=== PATIENT | male | born 1995 | race Caucasian/White ===

== ENCOUNTER 2018-02-14 19:44 | Inpatient (IN) | payer OTHER ==
--- NOTE | 2018-02-14 20:21 | ED ---
Psychiatric Complaint - HPI Summary HPI Summary: This pt is a 22 y/o male presenting to [facility] via EMS and [place] [employer] for suicide attempt today. Pt reports he jumped off a bridge [place] the gorg[place]. He states he fell into the net which prevented him from falling into the gorge. He additionally notes depression and left hand pain s/p fall. Pt denies any other injuries from fall today. No head strike or LOC. Pt notes he was pulled off the net by EMS. He reports recent stressor of school that prompted suicide attempt today. No hx of depression. Denies any PMHx. Pt denies any past suicide attempts. He only takes vitamins on a daily basis. - History Of Current Complaint Chief Complaint: EDMentalHealth Time Seen by Provider: 02/14/18 20:14 Hx Obtained From: Patient Onset/Duration: Lasting Days, Still Present Timing: Days Severity Currently: Severe Character: Depressed Aggravating Factor(s): Recent Stress Alleviating Factor(s): Nothing Associated Signs And Symptoms: Positive: Negative Has Suicidal: Reports: Thoughts, With A Plan, Demonstrates Gesture Has Homicidal: Denies: Thoughts, With A Plan Recent Stressor(s): school - Allergies/Home Medications Allergies/Adverse Reactions: Allergies Allergy/AdvReac Type Severity Reaction Status Date / Time No Known Allergies Allergy Verified 02/14/18 20:04 Home Medications: Home Medications Calcium Carbonate/Vitamin D3 [Calcium 1000 + D] 1 tab PO DAILY 02/14/18 [ History Confirmed 02/14/18] Multivitamin [Multivitamins] 1 cap PO DAILY 02/14/18 [History Confirmed 02/14/18 ] PMH/Surg Hx/FS Hx/Imm Hx Endocrine/Hematology History: Denies: Hx Diabetes Cardiovascular History: Denies: Hx Hypertension Respiratory History: Denies: Hx Asthma - Surgical History Surgery Procedure, Year, and Place: wisdom teeth removal Infectious Disease History: No Infectious Disease History: Denies: Traveled Outside the [place] in Last 30 Days - Family History Known Family History: Negative: Cardiac Disease, Hypertension, Diabetes Family History: Mother's side of CA. - Social History Alcohol Use: None Substance Use Type: Reports: None Smoking Status (MU): Never Smoked Tobacco Review of Systems Negative: Fever, Chills Cardiovascular: Negative Respiratory: Negative Gastrointestinal: Negative Musculoskeletal: Other - left hand pain Psychological: Other - SI thoughts, plan, and attempt Positive: Depressed. Negative: Other - HI thoughts/plan All Other Systems Reviewed And Are Negative: Yes Physical Exam - Summary Physical Exam Summary: VITAL SIGNS: Reviewed. GENERAL: Patient is a well-developed and nourished male. Patient is not in any acute respiratory distress. HEAD AND FACE: No signs of trauma. No ecchymosis, hematomas or skull depressions. No sinus tenderness. EYES: PERRLA, EOMI x 2, No injected conjunctiva, no nystagmus. EARS: Hearing grossly intact. Ear canals and tympanic membranes are within normal limits. MOUTH: Oropharynx within normal limits. NECK: Supple, trachea is midline, no adenopathy, no JVD, no carotid bruit, no c- spine tenderness, neck with full ROM. CHEST: Symmetric, no tenderness at palpation LUNGS: Clear to auscultation bilaterally. No wheezing or crackles. CVS: Regular rate and rhythm, S1 and S2 present, no murmurs or gallops appreciated. ABDOMEN: Soft, non-tender. No signs of distention. No rebound, no guarding, and no masses palpated. Bowel sounds are normal. EXTREMITIES: FROM in all major joints, no edema, no cyanosis or clubbing. NEURO: Alert and oriented x 3. No acute neurological deficits. Speech is normal and follows commands. SKIN: Dry and warm PSYCH: pt appears to be sad Triage Information Reviewed: Yes Vital Signs On Initial Exam: Initial Vitals Temp Pulse Resp BP Pulse Ox 98.8 F 90 20 122/69 98 02/14/18 19:58 02/14/18 19:58 02/14/18 19:58 02/14/18 19:58 02/14/18 19:58 Vital Signs Reviewed: Yes Diagnostics - Vital Signs Vital Signs Temp Pulse Resp BP Pulse Ox 02/14/18 19:58 98.8 F 90 20 122/69 98 - Laboratory Result Diagrams: 02/14/18 21:43 02/14/18 21:43 Lab Statement: Any lab studies that have been ordered have been reviewed, and results considered in the medical decision making process. Re-Evaluation - Re-Evaluation First Eval Re-Evaluation Time: 21:26 Comment: Pt is medically cleared. Course/Dx - Course Assessment/Plan: Blood work w/o a significant abnormality. Pt is medically cleared. He is awaiting for a MHE. Patient is hemodynamically stable and A+O x 3. Patient will be signed out to Dr. Gonzalez at shift change. Patient is still awaiting for the mental health evaluation. - Differential Dx/Clinical Impression Differential Diagnosis/HQI/PQRI: Positive: Depression, Suicide Attempt, Suicidal Ideation Provider Diagnosis: Major depressive disorder Discharge - Sign-Out/Discharge Documenting (check all that apply): Sign-Out Patient Signing out patient TO: Parviz Gonzalez - pending dispo, awaiting MHE - Discharge Plan Condition: Fair Disposition: PSYCHIATRIC FACILITY[place] [place] Billing Disposition and Condition Condition: STABLE - Attestation Statements Document Initiated by Scribe: Yes Documenting Scribe: Judit Broussard Provider For Whom Scribe is Documenting (Include Credential): Robb Poe MD Scribe Attestation: Judit De Santiago, scribed for Robb Poe MD on 02/16/18 at 0912. Scribe Documentation Reviewed: Yes Provider Attestation: The documentation as recorded by the Judit dacosta accurately reflects the service I personally performed and the decisions made by , Robb Poe MD
[2018-02-14 21:50] LABS: ABS Basophils 0 10^3/ul (0-0.2); ABS Eosinophils 0 10^3/ul (0-0.6); ABS Lymphocytes 1.8 10^3/ul (1.0-4.8); ABS Monocytes 0.6 10^3/ul (0-0.8); ABS Nucleated RBC 0 10^3/ul; Eosinophil % 0.6 % (0-6); Hematocrit 46 % (42-52); Hemoglobin 16.2 g/dl (14.0-18.0); Lymphocyte % 23.7 % (25-47); Mean Corpuscular HGB Conc 35 g/dl (31-36); Mean Corpuscular Hemoglobin 33 pg (27-31); Mean Corpuscular Volume 92 fL (80-94); Mean Platelet Volume 7.6 um3 (7.4-10.4); Nucleated Red Blood Cells % 0.2; Platelet Count 255 10^3/ul (150-450); Red Blood Count 4.99 10^6/ul (4.00-5.40); Red Cell Distribution Width 13 % (10.5-15); White Blood Count 7.4 10^3/ul (3.5-10.8)
[2018-02-14 22:06] LABS: EGFR Non-African American 97.9 (>60)
[2018-02-15 00:17] LABS: Urine Appearance Clear; Urine Blood Negative (Negative); Urine Color Yellow; Urine Ketones Trace (Negative); Urine Protein Negative (Negative); Urine Urobilinogen Negative (Negative)
--- NOTE | 2018-02-15 04:04 | ED ---
Progress - Progress Note Progress Note: This patient was signed out from Lui Brito on shift changed awaiting MHE. After MHE by Dr. Nj the patient will be admitted with dx of major depressive disorder. - Consult/PCP Time Called: 21:30 Re-Evaluation - Re-Evaluation First Eval Re-Evaluation Time: 21:26 Comment: Pt is medically cleared. Course/Dx - Course Course Of Treatment: This patient was signed out from Lui Brito on shift changed awaiting MHE. After MHE by Dr. Nj the patient will be admitted with dx of major depressive disorder. They are attempting to admit the patient although there are no beds currently. If none are open the patient will be transfered, Dr Cr will be informed of this - Diagnoses Provider Diagnoses: Major depressive disorder Discharge - Sign-Out/Discharge Documenting (check all that apply): Patient Departure - admitted Receiving patient FROM: Robb Poe - Discharge Plan Condition: Fair Disposition: PSYCHIATRIC FACILITY[place] [place] - Attestation Statements Document Initiated by Scribe: Yes Documenting Scribe: Bao Wilhelm Provider For Whom Scribe is Documenting (Include Credential): Parviz Gonzalez MD Scribe Attestation: Bao De Santiago, scribed for Parviz Gonzalez MD on 02/16/18 at 0955.
--- NOTE | 2018-02-15 08:38 | PN ---
ED Flex Patient Progress Note Subjective: This is a 22 year-old M who is pending admission to [facility] / transfer to another psychiatric facility / discharge to home / or being observed secondary to SI with attempt. Pt. examined in ER bed 12 around 0810. He is sleeping comfortably. Objective: Vitals: Most recent vital signs documented below. General NAD, Alert and oriented x3. Laboratory: Current laboratory results documented below. Assessment: Pending MHE. Plan: Pending psychiatric or medical consultation to observe / transfer / admit / discharge will follow up daily . Vital Signs Temp Pulse Resp BP Pulse Ox 98.8 F 50 16 109/65 96 02/14/18 19:58 02/15/18 07:10 02/15/18 07:10 02/15/18 07:10 02/15/18 07:10 Lab Results - Entire Visit 02/14/18 02/14/18 02/14/18 23:59 23:59 21:43 WBC RBC Hgb Hct MCV MCH MCHC RDW Plt Count MPV Neut % (Auto) Lymph % (Auto) Mcleod % (Auto) Eos % (Auto) Baso % (Auto) Absolute Neuts (auto) Absolute Lymphs (auto) Absolute Monos (auto) Absolute Eos (auto) Absolute Basos (auto) Absolute Nucleated RBC Nucleated RBC % Sodium 137 Potassium 3.4 L Chloride 103 Carbon Dioxide 27 Anion Gap 7 BUN 14 Creatinine 0.96 Est GFR ( Amer) 118.5 Est GFR (Non-Af Amer) 97.9 BUN/Creatinine Ratio 14.6 Glucose 94 Calcium 9.7 Total Bilirubin 1.00 AST 18 ALT 11 Alkaline Phosphatase 63 Total Protein 6.8 Albumin 4.7 Globulin 2.1 Albumin/Globulin Ratio 2.2 TSH 0.81 Urine Color Yellow Urine Appearance Clear Urine pH 7.0 Ur Specific [place] 1.010 Urine Protein Negative Urine Ketones Trace A Urine Blood Negative Urine Nitrate Negative Urine Bilirubin Negative Urine Urobilinogen Negative Ur Leukocyte Esterase Negative Urine Glucose Negative Salicylates < 2.50 Urine Opiates Screen None detected Acetaminophen < 15 Ur Barbiturates Screen None detected Ur Phencyclidine Scrn None detected Ur Amphetamines Screen None detected U Benzodiazepines Scrn None detected Urine Cocaine Screen None detected U Cannabinoids Screen None detected Serum Alcohol < 10 02/14/18 21:43 WBC 7.4 RBC 4.99 Hgb 16.2 Hct 46 MCV 92 MCH 33 H MCHC 35 RDW 13 Plt Count 255 MPV 7.6 Neut % (Auto) 67.6 Lymph % (Auto) 23.7 L Mcleod % (Auto) 7.8 H Eos % (Auto) 0.6 Baso % (Auto) 0.3 Absolute Neuts (auto) 5.0 Absolute Lymphs (auto) 1.8 Absolute Monos (auto) 0.6 Absolute Eos (auto) 0 Absolute Basos (auto) 0 Absolute Nucleated RBC 0 Nucleated RBC % 0.2 Sodium Potassium Chloride Carbon Dioxide Anion Gap BUN Creatinine Est GFR ( Amer) Est GFR (Non-Af Amer) BUN/Creatinine Ratio Glucose Calcium Total Bilirubin AST ALT Alkaline Phosphatase Total Protein Albumin Globulin Albumin/Globulin Ratio TSH Urine Color Urine Appearance Urine pH Ur Specific [place] Urine Protein Urine Ketones Urine Blood Urine Nitrate Urine Bilirubin Urine Urobilinogen Ur Leukocyte Esterase Urine Glucose Salicylates Urine Opiates Screen Acetaminophen Ur Barbiturates Screen Ur Phencyclidine Scrn Ur Amphetamines Screen U Benzodiazepines Scrn Urine Cocaine Screen U Cannabinoids Screen Serum Alcohol
[2018-02-15] MEDS ORDERED: Acetaminophen TAB* 325 MG PO PRN (10:21)
[2018-02-15] MEDS ORDERED: Al Hydrox/Mg Hydrox/Simet LIQ* 30 ML UDC PO PRN (10:21)
[2018-02-16] MEDS: Vitamin THERAPEUTIC TAB PO SCH (11:32)
[2018-02-16] MEDS: Calcium/Vitamin D TAB 250/125* TAB PO SCH (11:32)
--- NOTE | 2018-02-16 16:48 | PN ---
MHU: Group Therapy Note - Service Type Service Type: [id number] Group Psychotherapy - Medication Education Group: Patient attended group and presented with flat affect that did not vary with discussion. Although responsive to direct prompts to respond to questions, patient did not engage in spontaneous conversation.
--- NOTE | 2018-02-16 21:20 | HP ---
HISTORY AND PHYSICAL: DATE OF ADMISSION: 02/15/18 PROVIDER: Mitzi Salguero NP, in Psychiatry. SUPERVISING PHYSICIAN: Zain Watts MD.* (DICTATED BY MITZI SALGUERO NP) JUSTIFICATION FOR ADMISSION: The patient is in need of 24-hour supervision and care secondary to a suicide attempt wherein he jumped into the net over one of the gorges at [employer] and was planning on climbing out the net and into the gorge to end his life. CHIEF COMPLAINT: "I was working nonstop, I didn't sleep, I was full of rage and fear, and I jumped off the bridge." HISTORY OF PRESENT ILLNESS: The patient is a 22-year-old single white male with no history of psychiatric illness, although he does have an auditory processing disorder, who arrives brought in by ambulance on a 9.39 status after walking across the bridge, climbing over it, jumping into a net with the plan to jump out of the net. Fortunately, he was terrified of the fall and once he got into the net, he decided to stay there. He states that he was working 7 days a week 10 to 12 hours a day. He also could not sleep. He was also angry. He was filled with fear, he then became numb. He had dinner and then he went to jump off the bridge. He planned on climbing out of the net, but he found the fall so terrifying that he decided to stay still. He says that he has been overwhelmed by the semester. He is mostly feeling stressed and not depressed. He has been having trouble thinking, trouble falling asleep, and he has detectable anxiety. He states his anxiety is only a 2/10; however, when pressed about that, he acknowledged it might actually be higher. He is in an [employer] program at [employer] in the [employer] and [employer]. He is taking four 400-level courses, which apparently is too much for him. His parents have come up to see him. His dad seems somewhat relaxed about issues. His mom seems quite upset. His sleep is poor. He is not interested in much. His energy is low. He is unable to concentrate. His appetite has been poor and clearly he has had a suicide attempt. PAST PSYCHIATRIC HISTORY: He has had a therapist when he was quite young related to an auditory processing disorder. He had a psychologist in middle school, but he does not remember why. He had another one 2 to 3 years ago in [facility] when he, according to his father, failed out of [employer] and went to [employer] for a semester. He has not had a therapist since then. He has not had any prior suicide attempts. This time he states he did want to . As far as previous meds go, 1-1/2 years ago, he was prescribed sertraline to stay awake, which is an unfamiliar application, but he states he is quite sure that that is the medication he was given. He stopped taking it because it stopped working. He denies trauma. He denies traumatic brain injury. He denies access to weapons. He denies homicidality. He is not taking any psychiatric meds currently. SUBSTANCE ABUSE HISTORY: He denies all substance abuse and all substance abuse treatment. PAST MEDICAL HISTORY: Negative. CURRENT MEDICATIONS: He takes vitamins. He has taken no other medications in the past. FAMILY HISTORY OF PSYCHIATRIC ILLNESS: None. He says his dad's side of the family drinks a lot, but no one has been in treatment. SOCIAL HISTORY: He was born in [facility] and grew up there with his sister , Natalie. His parents, Suzanne and Jeromy, are now . He denies abuse. His education was apparently typical. He is now in [employer]. This is his 4th year. He does not date anyone. He would be interested in woman. He has never dated anyone at all. He is not employed. He has never been in the . There are no legal problems. He has never had a sexual partner. REVIEW OF SYMPTOMS: The patient reports feeling alert. He denies shortness of breath, heat or cold intolerance, chest pain, or abdominal pain. He denies neurological symptoms. He denies fevers or changes in weight. PHYSICAL EXAMINATION VITAL SIGNS: On 02/15/18 at 1449, his temperature is 98.3, his pulse is 77, respirations 16, O2 sat 100%, blood pressure 126/68. For further exam data, please see emergency department records. The only notable item is that his left hand has been scraped from falling into the net. This is not a significant injury. LABORATORY DATA: Most data are within normal limits with the exceptions MCH is 33, which is high, lymph percentage is low at 23.7, monocyte percentage is high at 7.8. Potassium is low at 3.4. Urine contains trace ketones and his toxicology screen is clear. MENTAL STATUS EXAM: Lon is tall and slim. He has brown hair and a small naqvi. He is cooperative. His grooming is adequate. His motor activity is normal, but slightly stiff. He is not irritable or hostile. His speech is normal rate, tone, and volume. He appears to be euthymic. His affect is constricted. His thought processes are rapid. His thought content is logical. He is no longer homicidal or suicidal. He is not having any hallucinations. His insight is good. His judgement is fair. He is alert and oriented x3. DIAGNOSIS: Belcher I: Adjustment disorder with depression and anxiety. IMPRESSION: This is an intelligent man, who is 22, who attends [employer] in his 4th year, and found himself overwhelmed by work and potentially lack of social support. He completed his day, had dinner and then jumped off a bridge into a net. He found the fall so terrifying that he decided not to go through with the rest of the suicide attempt. PLAN: The patient is admitted to the adult behavioral health unit and placed on q.15-minute checks for his own safety. He is encouraged to participate in supportive milieu, individual and group therapy. His estimated length of stay is 5 to 7 days. We will discuss medications and titrate them to efficacy if necessary. We will monitor for mood and thought content. Discharge planning will include family involvement and outpatient providers. MITZI SALGUERO, ESSIE [id number]/[facility] #: [id number] RORY
[2018-02-17] MEDS: Calcium/Vitamin D TAB 250/125* TAB PO SCH (09:40)
[2018-02-17] MEDS: Vitamin THERAPEUTIC TAB PO SCH (09:40)
--- NOTE | 2018-02-17 14:48 | PN ---
Subjective - Subjective Date of Service: 02/17/18 Service Type: 40362 Hosp care 35 min high complexity Subjective: Visiting with Lon and his Dad, Jeromy, provided information about his auditory processing disorder as well as his struggles through school and eventual victory over 3 years with great grades. Jeromy believes, and Lon agrees, that Lon did not take advantage of advice available to him at [place]. Lon agrees that he thinks rapidly and not with a lot of space to entertain alternative ideas of what to do. Thus, he took courses that were not necessarily appropriate to him and he chose to jump off a bridge rather than call someone. Objective - Appearance Appearance: Thin Framed Dysmorphic Features: No Hygiene: Normal Grooming: Well Kept - Behavior Psychomotor Activities: Normal Exhibits Abnormal Movement: No - Attitude and Relatedness Attitude and Relatedness: Superficially Cooperative Eye Contact: Fair - Speech Quality: Unpressured Latencies: Normal Quantity: Appropriate - Mood Patient's Decription of Mood: "Okay" - Affect Observed Affect: Constricted Affect Consistent with: Dysphoria - Thought Process Patient's Thought Process: Coherent, Goal Directed Thought Content: No Passive Wish, No Suicidal Planning, No Homicidal Ideation, No Paranoid Ideation - Sensorium Experiencing Hallucinations: No, Sensorium is Clear Type of Hallucinations: Visual: No, Auditory: No, Command: No - Level of Consciousness Level of Consciousness: Alert Orientation: Yes Intact, Yes Orientated to Time, Yes Orientated to Place, Yes Orientated to Person - Impulse Control Impulse Control: Tenuous - Insight and Judgement Insight and Judgement: Fair - Group Participation Particating in Group Activities: Yes - Additional Observations Comments: Lon does not currently want to take medication. We will revisit this. He is adherent to other recommendations, such as going to groups and eating meals. Assessment - Assessment Merits Inpatient Hospitalization: For Immediate Safety Inpatient DSM-V Dx: F43.23 Clinical Impression: Lon seems resigned to be here and states he understands why he can't go home. The primary focus of his treatment at this point is introducing spaces/time into his thinking so he can make more reasoned choices, as he no longer wishes to . He is very compliant with the advice of his dad, but he also does not respond with questions or objections. Plan - Plan Treatment Plan: Name: DAWOOD NOAH Birthdate: 1995 [id number] Continued Medication Management: Start Medication Medications: Current Medications Acetaminophen (Tylenol Tab*) 650 mg PO Q4H PRN PRN Reason: for pain; or Temp >101 F Al Hydrox/Mg Hydrox/Simethicone (Maalox Plus*) 30 ml PO Q4H PRN PRN Reason: INDIGESTION Calcium/Vitamin D (Oscal D Tab 250/125*) 1 tab PO DAILY [facility] Last Admin: 02/17/18 09:40 Dose: 1 tab Multivitamins (Theragran Tab*) 1 tab PO DAILY [facility] Last Admin: 02/17/18 09:40 Dose: 1 tab - Discharge Plan Discharge Plan: Outpatient Follow Up Additional Comments: Lon's father, Jeromy, has made many arrangements and plans for Lon when he returns to [facility] to live with his Dad for about a year after which he will return to [employer]. Jeromy's plan includes a therapist, exercise, a part- time job, and elimination of his computer (and therefore games) for several months. His mom, Suzanne, will be meeting with Lon Wednesday.
[2018-02-18] MEDS: Vitamin THERAPEUTIC TAB PO SCH (09:00)
[2018-02-18] MEDS: Calcium/Vitamin D TAB 250/125* TAB PO SCH ×2 (09:00→20:32)
[2018-02-18] MEDS: Sertraline* 50 MG TAB PO SCH (17:00)
--- NOTE | 2018-02-18 19:16 | PN ---
Subjective - Subjective Date of Service: 02/18/18 Service Type: 77413 Hosp care 35 min high complexity Subjective: Spoke with Klaudia, Lon's mom, at length. She revealed that while Jeromy, Lon's dad, raised Lon since age 14, Klaudia and her family have been functioning in the background. In addition, Klaudia believes her potential role in Lon's life has been overwhelmed by Jeromy's strong and "energetic/charismatic" personality and functional alcoholism. Needless to say, there has been some competetive parenting. From Klaudia's perspective, Jeromy has been overwhelming her role and misrepresenting her intentions. When I speak with Lon, it is clear that he is aware of these difficult machinations, if not the true results (which, of course, remain obscure). Lon seems to feel the pull between the parents, but at the same time is able to focus on his own needs and agree to a future 100 mg dose of sertraline in the context of reducing depression, anxiety, and impulsivity. Objective - Appearance Appearance: Healthy Appearing Dysmorphic Features: No Hygiene: Normal Grooming: Well Kept - Behavior Psychomotor Activities: Normal Exhibits Abnormal Movement: No - Attitude and Relatedness Attitude and Relatedness: Well Related Eye Contact: Good - Speech Quality: Unpressured Latencies: Normal Quantity: Appropriate - Mood Patient's Decription of Mood: "Fine" - Affect Observed Affect: Constricted Affect Consistent with: Euthymia - Thought Process Patient's Thought Process: Coherent, Goal Directed Thought Content: No Passive Wish, No Suicidal Planning, No Homicidal Ideation, No Paranoid Ideation - Sensorium Experiencing Hallucinations: No, Sensorium is Clear - Level of Consciousness Level of Consciousness: Alert Orientation: No Intact, No Orientated to Time, No Orientated to Place, No Orientated to Person - Impulse Control Impulse Control: Tenuous - Insight and Judgement Insight and Judgement: Good - Group Participation Particating in Group Activities: Yes - Medication Management Medication Management Adherence: Yes - Additional Observations Comments: Lon is adherent to recommendations, such as going to groups, taking medications , and eating meals.Although he is somewhat unsure that medication will be helpful to him, he is agreeable. Assessment - Assessment Merits Inpatient Hospitalization: For Immediate Safety Inpatient DSM-V Dx: F43.23 Clinical Impression: Lon seems resigned to be here and states he understands why he can't go home. The primary focus of his treatment at this point is introducing spaces/time into his thinking so he can make more reasoned choices, as he no longer wishes to . He is very compliant with the advice of his dad, but he also could benefit from the advice of both parents. In the meantime, he is benefitting significantly from groups and the information he is garnering there Plan - Plan Treatment Plan: Name: DAWOOD ZAMORA Birthdate: 1995 [id number] Continued Medication Management: Start Medication Medications: Current Medications Acetaminophen (Tylenol Tab*) 650 mg PO Q4H PRN PRN Reason: for pain; or Temp >101 F Al Hydrox/Mg Hydrox/Simethicone (Maalox Plus*) 30 ml PO Q4H PRN PRN Reason: INDIGESTION Calcium/Vitamin D (Oscal D Tab 250/125*) 1 tab PO BID RADHA Lactobacillus Rhamnosus (Lactobacillus Acidophilus*) 1 tab PO DAILY RADHA Multivitamins (Theragran Tab*) 1 tab PO DAILY [facility] Last Admin: 02/18/18 09:00 Dose: 1 tab Sertraline HCl (Zoloft*) 50 mg PO DAILY [facility]HA Stop: 02/21/18 01:00 Last Admin: 02/18/18 17:00 Dose: 50 mg Sertraline HCl (Zoloft*) 100 mg PO DAILY RADHA - Discharge Plan Discharge Plan: Outpatient Follow Up Additional Comments: Lon's father, Jeromy, has made many arrangements and plans for Lon when he returns to [facility] to live with his Dad for about a year after which he will return to [place]. Jeromy's plan includes a therapist, exercise, a part- time job, and elimination of his computer (and therefore games) for several months. His mom has concerns regarding his therapy and objectives consistent with his future. Here at [facility], we remain concerned about his immediate mental health concerns and will work toward a partial [facility] as well as concerns for Lon's safety which will be consistent with his personal goals.
[2018-02-19] MEDS: Calcium/Vitamin D TAB 250/125* TAB PO SCH ×2 (08:56→21:41)
[2018-02-19] MEDS: Lactobacillus Acidophilus* 1 TAB PO SCH (08:57)
[2018-02-19] MEDS: Vitamin THERAPEUTIC TAB PO SCH (08:57)
[2018-02-19] MEDS: Sertraline* 50 MG TAB PO SCH (08:57)
--- NOTE | 2018-02-19 12:51 | PN ---
Subjective - Subjective Date of Service: 02/19/18 Service Type: 90147 Hosp care 15 min low complexity Subjective: Efraín is seen in weekend coverage for Mitzi TANNER. He presents as dry, somewhat concrete and perhaps dismissive. He denies any further suicidal thinking and reports that he is "marginally satisfied" with life. He appears euthymic with no current complaints. He does note that the sertraline gave him mild diarrhea initially but this is resolving. His expectation is that he will remain hospitalized until this (02/24). Objective - Appearance Appearance: Well Developed/Nourished Dysmorphic Features: No Hygiene: Normal Grooming: Well Kept - Behavior Psychomotor Activities: Normal Exhibits Abnormal Movement: No - Attitude and Relatedness Attitude and Relatedness: Cooperative Eye Contact: Fair - Speech Quality: Unpressured Latencies: Normal Quantity: Terse - Mood Patient's Decription of Mood: "Okay" - Affect Observed Affect: Good Affect Consistent with: Euthymia - Thought Process Patient's Thought Process: Coherent Thought Content: No Passive Wish, No Suicidal Planning, No Homicidal Ideation, No Paranoid Ideation - Sensorium Experiencing Hallucinations: No, Sensorium is Clear Type of Hallucinations: Visual: No, Auditory: No, Command: No - Level of Consciousness Level of Consciousness: Alert Orientation: Yes Intact, Yes Orientated to Time, Yes Orientated to Place, Yes Orientated to Person - Impulse Control Impulse Control: Tenuous - Insight and Judgement Insight and Judgement: Fair - Group Participation Particating in Group Activities: Yes - Medication Management Medication Management Adherence: Yes Assessment - Assessment Merits Inpatient Hospitalization: For Immediate Safety, For Stabilization Inpatient DSM-V Dx: F43.23 Clinical Impression: Lon seems resigned to be here and states he understands why he can't go home. The primary focus of his treatment at this point is introducing spaces/time into his thinking so he can make more reasoned choices, as he no longer wishes to . He is very compliant with the advice of his dad, but he also could benefit from the advice of both parents. In the meantime, he is benefitting significantly from groups and the information he is garnering there Plan - Plan Treatment Plan: Name: EFRAÍN ZAMORA Birthdate: 1995 [id number] The patient has started a trial of sertraline 100mg PO qday. He appears to be improving but had a significant suicide attempt and is fortunate to be alive. Will continue inpatient care. Continued Medication Management: Start Medication Medications: Current Medications Acetaminophen (Tylenol Tab*) 650 mg PO Q4H PRN PRN Reason: for pain; or Temp >101 F Al Hydrox/Mg Hydrox/Simethicone (Maalox Plus*) 30 ml PO Q4H PRN PRN Reason: INDIGESTION Calcium/Vitamin D (Oscal D Tab 250/125*) 1 tab PO BID [facility] Last Admin: 02/19/18 08:56 Dose: 1 tab Lactobacillus Rhamnosus (Lactobacillus Acidophilus*) 1 tab PO DAILY [facility] Last Admin: 02/19/18 08:57 Dose: 1 tab Multivitamins (Theragran Tab*) 1 tab PO DAILY [facility] Last Admin: 02/19/18 08:57 Dose: 1 tab Sertraline HCl (Zoloft*) 50 mg PO DAILY [facility] Stop: 02/21/18 01:00 Last Admin: 02/19/18 08:57 Dose: 50 mg Sertraline HCl (Zoloft*) 100 mg PO DAILY [facility] - Discharge Plan Discharge Plan: Inpatient Hospitalization
[2018-02-20] MEDS: Calcium/Vitamin D TAB 250/125* TAB PO SCH ×2 (09:34→20:10)
[2018-02-20] MEDS: Lactobacillus Acidophilus* 1 TAB PO SCH (09:35)
[2018-02-20] MEDS: Sertraline* 50 MG TAB PO SCH (09:35)
[2018-02-20] MEDS: Vitamin THERAPEUTIC TAB PO SCH (09:35)
[2018-02-21] MEDS: Vitamin THERAPEUTIC TAB PO SCH (10:01)
[2018-02-21] MEDS: Sertraline* 100 MG TAB PO SCH (10:01)
[2018-02-21] MEDS: Calcium/Vitamin D TAB 250/125* TAB PO SCH ×2 (10:01→20:26)
[2018-02-21] MEDS: Lactobacillus Acidophilus* 1 TAB PO SCH (10:01)
--- NOTE | 2018-02-21 14:00 | PN ---
MHU: Group Therapy Note - Service Type Service Type: 45000 Group Psychotherapy - Cognitive Behavioral Group Therapy ( CBT):Patient was attentive and participatory in CBT programming this morning, and remained in good behavioral control. Patient expressed positive insights regarding relevant treatment interventions and goals.
--- NOTE | 2018-02-21 14:18 | PN ---
Subjective - Subjective Date of Service: 02/21/18 Service Type: 70178 Hosp care 25 min moderate complexity Subjective: Lon is doing well, apparently, in the milieu. He is thriving under lower stress and the ability to be independent from his immediate stressors. It should be noted well that his mother indicated that Lon stated he would engage in suicide attempt again if he were ever under a similar amount of stress. This statement is incredibly troubling and is inconsistent with the way Lon presents here. Objective - Appearance Appearance: Healthy Appearing Dysmorphic Features: No Hygiene: Normal Grooming: Well Kept - Behavior Psychomotor Activities: Normal Exhibits Abnormal Movement: No - Attitude and Relatedness Attitude and Relatedness: Well Related Eye Contact: Good - Speech Quality: Unpressured Latencies: Normal Quantity: Appropriate - Mood Patient's Decription of Mood: "Good" - Affect Observed Affect: Constricted Affect Consistent with: Euthymia - Thought Process Patient's Thought Process: Coherent Thought Content: Yes Suicidal Planning, No Passive Wish, No Homicidal Ideation, No Paranoid Ideation - Sensorium Experiencing Hallucinations: No, Sensorium is Clear Type of Hallucinations: Visual: No, Auditory: No, Command: No - Level of Consciousness Level of Consciousness: Alert Orientation: Yes Intact, Yes Orientated to Time, Yes Orientated to Place, Yes Orientated to Person - Impulse Control Impulse Control: Impaired - Insight and Judgement Insight and Judgement: Fair - Group Participation Particating in Group Activities: Yes - Medication Management Medication Management Adherence: Yes - Additional Observations Comments: Lon is adherent to recommendations, such as going to groups, taking medications , and eating meals.Although he is somewhat unsure that medication will be helpful to him, he is agreeable. He is a bit bored, having run out of things to read. He retains good humor, however. Assessment - Assessment Merits Inpatient Hospitalization: For Immediate Safety, For Discharge Planning Inpatient DSM-V Dx: F43.23 Clinical Impression: Lon seems resigned to be here and states he understands why he can't go home. The primary focus of his treatment at this point is introducing spaces/time into his thinking so he can make more reasoned choices, as he no longer wishes to . He is very compliant with the advice of his dad, but he also could benefit from the advice of both parents. In the meantime, he is benefitting significantly from groups and the information he is garnering there. Complications are arising due to the apparent disagreements of the parents. Both want the best for Lon. Plan - Plan Treatment Plan: Name: DAWOOD ZAMORA Birthdate: 1995 [id number] Medications: Current Medications Acetaminophen (Tylenol Tab*) 650 mg PO Q4H PRN PRN Reason: for pain; or Temp >101 F Al Hydrox/Mg Hydrox/Simethicone (Maalox Plus*) 30 ml PO Q4H PRN PRN Reason: INDIGESTION Calcium/Vitamin D (Oscal D Tab 250/125*) 1 tab PO BID [facility] Last Admin: 02/21/18 10:01 Dose: 1 tab Lactobacillus Rhamnosus (Lactobacillus Acidophilus*) 1 tab PO DAILY [facility] Last Admin: 02/21/18 10:01 Dose: 1 tab Multivitamins (Theragran Tab*) 1 tab PO DAILY [facility] Last Admin: 02/21/18 10:01 Dose: 1 tab Sertraline HCl (Zoloft*) 100 mg PO DAILY [facility] Last Admin: 02/21/18 10:01 Dose: 100 mg - Discharge Plan Discharge Plan: Outpatient Follow Up Additional Comments: Lon's father, Jeromy, has made many arrangements and plans for Lon when he returns to [facility] to live with his Dad for about a year after which he will return to [place]. Jeromy's plan includes a therapist, exercise, a part- time job, and elimination of his computer (and therefore games) for several months. His mom has concerns regarding his therapy and objectives consistent with his future. Here at [facility], we remain concerned about his immediate mental health concerns and will work toward a partial hospitalization program in [facility] as well as concerns for Lon's safety which will be consistent with his personal goals. A family phone call including Lon, mom, and dad, as well as Sara Allison , will be made at 2:30 Wednesday to discuss discharge plans.
[2018-02-22] MEDS: Calcium/Vitamin D TAB 250/125* TAB PO SCH ×2 (08:10→20:19)
[2018-02-22] MEDS: Sertraline* 100 MG TAB PO SCH (08:10)
[2018-02-22] MEDS: Vitamin THERAPEUTIC TAB PO SCH (08:10)
[2018-02-22] MEDS: Lactobacillus Acidophilus* 1 TAB PO SCH (08:10)
--- NOTE | 2018-02-22 14:17 | PN ---
MHU: Group Therapy Note - Service Type Service Type: [id number] Group Psychotherapy - Cognitive Behavioral Group Therapy ( CBT):Patient attended CBT programming this morning and presented with flat affect that did not vary with discussion. Although responsive to direct prompts to respond to questions, patient did not engage in spontaneous conversation.
--- NOTE | 2018-02-22 16:20 | PN ---
Subjective - Subjective Date of Service: 02/22/18 Service Type: 80119 Hosp care 25 min moderate complexity Subjective: Lon and I spoke for some time today regarding discharge plans and his possible ambivalence about ending his life. He was reassuringly calm and even-handed about his discharge plan stating that he would return to his dad's house as that 's where his room is. He also said that he would be reasonably happy to go home with his mom as his sister would be there and he wouldn't be there long. He was not as reassuring about his potential plan to end his life. He said that the only method of suicide he would use, due to his personal beliefs, would be jumping. He didn't like it as it was very frightening to him and said he wouldn' t do it again. In that way, he says he is free from the potential to suicide. On the other hand, he did not agree that there could be alternative methods of dealing with significant stress and anxiety and despair. He stated he did not think that combination of stress, anxiety, and despair could occur again. He was not open to talking about what would happen if it did. Objective - Appearance Appearance: Healthy Appearing Dysmorphic Features: No Hygiene: Normal Grooming: Well Kept - Behavior Psychomotor Activities: Normal Exhibits Abnormal Movement: No - Attitude and Relatedness Attitude and Relatedness: Cooperative Eye Contact: Good - Speech Quality: Unpressured Latencies: Normal Quantity: Appropriate - Mood Patient's Decription of Mood: "Good" - Affect Observed Affect: Good Affect Consistent with: Euthymia - Thought Process Patient's Thought Process: Coherent, Goal Directed Thought Content: Yes Suicidal Planning, No Passive Wish, No Homicidal Ideation, No Paranoid Ideation - Sensorium Experiencing Hallucinations: No, Sensorium is Clear Type of Hallucinations: Visual: No, Auditory: No, Command: No - Level of Consciousness Level of Consciousness: Alert Orientation: Yes Intact, Yes Orientated to Time, Yes Orientated to Place, Yes Orientated to Person - Impulse Control Impulse Control: Intact - Insight and Judgement Insight and Judgement: Impaired - Group Participation Particating in Group Activities: Yes - Medication Management Medication Management Adherence: Yes - Additional Observations Comments: Lon is adherent to recommendations, such as going to groups, taking medications , and eating meals.Although he is somewhat unsure that medication will be helpful to him, he is agreeable. He retains good humor. He is eager to shave and be presentable. His conversation does not become emotional. Rather, he is intellectualizes what he believes and feels and contextualizes it in thoughts rather than feelings. Assessment - Assessment Merits Inpatient Hospitalization: For Immediate Safety, For Discharge Planning Inpatient DSM-V Dx: F43.23 Clinical Impression: Lon seems resigned to be here and states he understands why he can't go home. He is very compliant with the advice of his dad. In the meantime, he is benefitting significantly from groups and the information he is garnering there. Lon is very intelligent and is so good at intellectualizing feelings, it is difficult to tell what he is feeling and how he might react to stress. He is safe here on the unit, but his resilience is difficult to predict. Plan - Plan Treatment Plan: Name: DAWOOD ZAMORA Birthdate: 1995 [id number] Medications: Current Medications Acetaminophen (Tylenol Tab*) 650 mg PO Q4H PRN PRN Reason: for pain; or Temp >101 F Al Hydrox/Mg Hydrox/Simethicone (Maalox Plus*) 30 ml PO Q4H PRN PRN Reason: INDIGESTION Calcium/Vitamin D (Oscal D Tab 250/125*) 1 tab PO BID [facility] Last Admin: 02/22/18 08:10 Dose: 1 tab Lactobacillus Rhamnosus (Lactobacillus Acidophilus*) 1 tab PO DAILY [facility] Last Admin: 02/22/18 08:10 Dose: 1 tab Multivitamins (Theragran Tab*) 1 tab PO DAILY [facility] Last Admin: 02/22/18 08:10 Dose: 1 tab Sertraline HCl (Zoloft*) 100 mg PO DAILY [facility] Last Admin: 02/22/18 08:10 Dose: 100 mg - Discharge Plan Discharge Plan: Outpatient Follow Up Additional Comments: Lon's father, Jeromy, has made many arrangements and plans for Lon when he returns to [facility] to live with his Dad for about a year after which he will return to [place]. Jeromy's plan includes a therapist, exercise, a part- time job, and elimination of his computer (and therefore games) for several months. His mom has concerns regarding his therapy and objectives consistent with his future. Here at [facility], we remain concerned about his immediate mental health concerns and will work toward a partial hospitalization program in [facility] as well as concerns for Lon's safety which will be consistent with his personal goals. A family phone call including Lon, mom, and dad, as well as Sara Allison , will be made at 2:30 today to discuss discharge plans. Discharge plans will be further solidified and Lon will make his needs known to his family.
[2018-02-23] MEDS: Calcium/Vitamin D TAB 250/125* TAB PO SCH ×2 (09:44→20:42)
[2018-02-23] MEDS: Vitamin THERAPEUTIC TAB PO SCH (09:44)
[2018-02-23] MEDS: Lactobacillus Acidophilus* 1 TAB PO SCH (09:45)
[2018-02-23] MEDS: Sertraline* 100 MG TAB PO SCH (09:45)
--- NOTE | 2018-02-23 16:21 | PN ---
MHU: Group Therapy Note - Service Type Service Type: [id number] Group Psychotherapy - Medication Education Group: Patient was attentive and participatory in group, and remained in good behavioral control. Patient expressed positive insights regarding relevant treatment interventions. Patient stated understanding of material discussed and had appropriate questions.
--- NOTE | 2018-02-23 16:36 | PN ---
Subjective - Subjective Date of Service: 02/23/18 Service Type: 74218 Hosp care 35 min high complexity Subjective: Lon is calm and yet more animated than he was on admission. We had a brief conversation organizing goals for the phone call that was planned for the afternoon. The phone call that occurred among the five of us, Lon, Sara Wellington, Jeromy, Suzanne, and Anyi, lasted about half an hour. We established that Lon could be discharged upon establishment of a discharge plan that contained all ingredients (partial hospitalization program, psychiatrist, therapist) required for successful discharge. The possibly contentious decision for Lon to make about where to live ended up being easily solved by Lon saying, "I'm going to live with my dad. That's where my room is." Objective - Appearance Appearance: Healthy Appearing Dysmorphic Features: No Hygiene: Normal Grooming: Well Kept - Behavior Psychomotor Activities: Normal Exhibits Abnormal Movement: No - Attitude and Relatedness Attitude and Relatedness: Cooperative Eye Contact: Good - Speech Quality: Unpressured Latencies: Normal Quantity: Appropriate - Mood Patient's Decription of Mood: "Good" - Affect Observed Affect: Constricted Affect Consistent with: Euthymia - Thought Process Patient's Thought Process: Coherent, Goal Directed Thought Content: No Passive Wish, No Suicidal Planning, No Homicidal Ideation, No Paranoid Ideation - Sensorium Experiencing Hallucinations: No, Sensorium is Clear Type of Hallucinations: Visual: No, Auditory: No, Command: No - Level of Consciousness Level of Consciousness: Alert Orientation: Yes Intact, Yes Orientated to Time, Yes Orientated to Place, Yes Orientated to Person - Impulse Control Impulse Control: Intact - Insight and Judgement Insight and Judgement: Good - Group Participation Particating in Group Activities: Yes - Medication Management Medication Management Adherence: Yes - Additional Observations Comments: Lon is adherent to recommendations, such as going to groups, taking medications , and eating meals.Although he is somewhat unsure that medication will be helpful to him, he is agreeable. He retains good humor. He is eager to shave and be presentable. His conversation does not become emotional. Rather, he is intellectualizes what he believes and feels and contextualizes it in thoughts rather than feelings. As he relaxes, he becomes more animated, although his affect is still quite constricted and he seems a little puzzled by emotional questions. He has a very pragmatic view of life which is serving him well right now. Assessment - Assessment Merits Inpatient Hospitalization: For Stabilization, Pending Safe DC Plan Inpatient DSM-V Dx: F43.23 Clinical Impression: Lon is benefitting significantly from groups and the information he is garnering there. Lon is very intelligent and is so good at intellectualizing feelings, it is difficult to tell what he is feeling and how he might react to stress. He is safe here on the unit, but his resilience is difficult to predict. Nevertheless, Lon is very reassuring in his explanations of why he would not go through with suicide, even if he had those thoughts. Plan - Plan Treatment Plan: Name: DAWOOD ZAMORA Birthdate: 1995 [id number] Medications: Current Medications Acetaminophen (Tylenol Tab*) 650 mg PO Q4H PRN PRN Reason: for pain; or Temp >101 F Al Hydrox/Mg Hydrox/Simethicone (Maalox Plus*) 30 ml PO Q4H PRN PRN Reason: INDIGESTION Calcium/Vitamin D (Oscal D Tab 250/125*) 1 tab PO BID [facility] Last Admin: 02/23/18 09:44 Dose: 1 tab Lactobacillus Rhamnosus (Lactobacillus Acidophilus*) 1 tab PO DAILY [facility] Last Admin: 02/23/18 09:45 Dose: 1 tab Multivitamins (Theragran Tab*) 1 tab PO DAILY [facility] Last Admin: 02/23/18 09:44 Dose: 1 tab Sertraline HCl (Zoloft*) 100 mg PO DAILY [facility] Last Admin: 02/23/18 09:45 Dose: 100 mg - Discharge Plan Discharge Plan: Outpatient Follow Up Additional Comments: Lon's father, Jeromy, has made many arrangements and plans for Lon when he returns to [facility] to live with his Dad for about a year after which he will return to [place]. Jeromy's plan includes a therapist, exercise, a part- time job, and elimination of his computer (and therefore games) for several months. His mom has concerns regarding his therapy and objectives consistent with his future. Here at [facility], we remain concerned about his immediate mental health concerns and will work toward a partial hospitalization program in [facility] as well as concerns for Lon's safety which will be consistent with his personal goals. Discharge plans are being further solidified. His family is on board with the plans as they are currently and we will continue to firm up plans for his discharge.
[2018-02-24] MEDS: Lactobacillus Acidophilus* 1 TAB PO SCH (08:50)
[2018-02-24] MEDS: Vitamin THERAPEUTIC TAB PO SCH (08:50)
[2018-02-24] MEDS: Sertraline* 100 MG TAB PO SCH (08:50)
[2018-02-24] MEDS: Calcium/Vitamin D TAB 250/125* TAB PO SCH ×2 (08:50→20:23)
[2018-02-25 07:52] VITALS: BP 108/62
[2018-02-25] MEDS: Vitamin THERAPEUTIC TAB PO SCH (08:38)
[2018-02-25] MEDS: Calcium/Vitamin D TAB 250/125* TAB PO SCH (08:38)
[2018-02-25] MEDS: Lactobacillus Acidophilus* 1 TAB PO SCH (08:38)
[2018-02-25] MEDS: Sertraline* 100 MG TAB PO SCH (08:38)
--- NOTE | 2018-02-25 11:05 | PN ---
MHU: Group Therapy Note - Service Type Service Type: 61349 Group Psychotherapy - Cognitive Behavioral Group Therapy ( CBT):Patient was attentive and participatory in CBT programming this morning, and remained in good behavioral control. Patient expressed positive insights regarding relevant treatment interventions and goals.
--- NOTE | 2018-02-25 22:30 | CONS ---
PSYCHOLOGICAL REPORT: DATE OF CONSULT: 02/25/18 REASON FOR REFERRAL: Efraín was referred for personality testing secondary to concerns regarding possible depression and lethality. TEST ADMINISTERED: Efraín completed the [place] Multiphasic Personality Inventory-2 (MMPI-2). Efraín was also seen by this leader writer in the context of cognitive behavioral group psychotherapy throughout his stay here. He was given feedback in individual conversation regarding testing results and his mother, Mason, was also seen in family counseling consultation. RELEVANT HISTORY: Efraín is a 22-year-old single, white male with no prior psychiatric admissions to the hospital, although he has been in outpatient treatment on 3 different occasions for long periods of time according to his mother. He is an Malagasy major at [employer], who was taken to the emergency department after having jumped off bridge and into one of the nets on campus. Efraín described having experienced intrusive suicidal thoughts in the preceding 2 to 3 weeks before jumping from the bridge, but describes having completed the attempt in a rather impulsive fashion. He describes increasing academic duress in recent days and described working a great deal on trying to keep up with coursework demands and became very fearful and angry. He describes taking what sounds to be somewhere between 18 and 21 credit hours and he did not anticipate the demands of the various courses in terms of time needed to put into his studies and his mother further elaborated that 2 of the courses required a performance aspect, which Efraín found difficult. Presently, Efraín anticipates medical leave and is going to return to studies next January. Meanwhile, he will return [place] to [place] [facility], where he anticipates living at his father's home where he has been since childhood and in having regular contact with his mother, who also lives in [place]. In fact, his mother is here visiting currently and is hopeful of taking him home this afternoon and having time with her son. His mother works as a psychologist in private practice currently in [facility] while his father works as a banking center manager in [place] [facility]. Other relevant history includes what sounds to be an acrimonious divorce between his parents, which Mason fears is part of his difficulties with depression. She describes having when Efraín was 14 years of age and then at 16 and is concerned that there are elements of parental alienation occurring, as well as exposure to rather chaotic experiences that have included his father's drinking and other social issues. TEST RESULTS: Efraín provides 3 elevated emotional duress scales all of rather minimal nature with F scores moving between T scores of 70 and 75 on the validity indices. This is indicative of someone who is endorsing significant amounts of both internal and external duress with discussion with Efraín endorsing difficulties with some pessimistic and cynical beliefs about people and circumstances. His emotional coping and self-esteem indices are thought to be in moderate ranges, which generally impress as a healthy range. Prominent concern both in clinical and in testing context is depression as Efraín elevates the depression scale to a T score of 75 with secondary elevations occurring on the interpersonal relatedness scales with minimal elevations between 67 and 70. Discussion with Efraín emphasized the importance of enhancing expectations of social interaction both in terms of satisfactory outcome and simply getting around people more often. This was related to depression and that often when people get depressed they tend to socially isolate and do not benefit from positive social interaction in terms of improving affect. IMPRESSIONS AND RECOMMENDATIONS: In discussion with Efraín' mother, Mason, outpatient treatment planning includes both individual and group efforts for Efraín with an emphasis on enhancing socialization through group activities. Feedback emphasized the importance of both peer relatedness as well as educational content in regards to ongoing psychotherapies as Efraín has described having less productive clinical experiences in prior psychotherapy efforts. Eduaryaima relayed his comments about prior clinical experience has been that he simply talks about his feelings, but does not get much feedback in regards to how to moderate negative mood. Other concerns regard potential for family conflict. Efraín has a very supportive sister, who is studying to enter medical school and who is more socially adept than he and quite interested in helping Efraín. It is hopeful Lon will respond positively to returning home to [facility] and continue to hale better perspectives on how to manage with life's difficulties. DIAGNOSTIC IMPRESSION: Supports adjustment disorder with depression and anxiety. [id number]/[facility] #: [id number] RORY
--- NOTE | 2018-02-28 10:52 | DS ---
DISCHARGE SUMMARY: DATE OF ADMISSION: 02/15/18 DATE OF DISCHARGE: 02/25/18 SUPERVISING PHYSICIAN: Zain Watts MD * (Mitzi Salguero NP) DIAGNOSES: [place] I: Major depressive disorder. [place] II: Deferred. CONDITION AT THE TIME OF DISCHARGE: Improved, psychiatrically cleared, stable. Efraín participated in groups and was social with peers. His mother was agreeable to discharge. He has done well here psychiatrically. He tolerated sertraline which has been taken before, but is new to him now. He will be attending a partial hospitalization program in [place] in [facility]. MENTAL STATUS EXAMINATION: At the time of discharge, the patient is calm, cooperative, and makes good eye contact. He is alert and oriented x3. His grooming is excellent. His speech pace is normal. His thought processes are logical. He is not psychotic or delusional. He denies AH, VH, SI and HI. His insight and judgment are good. He is willing to follow up. DISCHARGE INSTRUCTIONS TO THE PATIENT: A. Medications: 1. Calcium carbonate with vitamin D. 2. Multivitamin. 3. Sertraline 100 mg daily, dispensed 14 tablets. B. Diet: Regular. C. Activities: As tolerated. Lon is a nonsmoker. There are no studies pending at the time of discharge. D. Followup care: He has an appointment Wednesday at [place] partial hospitalization program in [facility]. E. Substance abuse followup is not indicated. Lon does not use any illegal substances or nicotine. HOSPITAL COURSE: A. Chief Complaint: "I was working nonstop, I didn't sleep, I was full of rage and fear and I jumped off the bridge." The patient is a 22-year-old single white male with no history of psychiatric illness, although he does have auditory processing disorder, who arrives brought in by ambulance on a 9.39 status after walking across the bridge, climbing over it, jumping into a net with a plan to jump out of the net. Fortunately, he was terrified of the fall and once he got into the net, he decided to stay there. 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 He also could not sleep. He was also angry. He was filled with fear. He then became numb. He had dinner and then he went to jump off the bridge. He planned on climbing out of the net, but he found the fall so terrifying that he decided to stay still. He states that he has been overwhelmed by the semester. He is mostly feeling stressed and not depressed. He has been having trouble thinking, trouble falling asleep and he has detectable anxiety. He states his anxiety is only 2/10; however, when pressed about that, he acknowledged it might actually be higher. He is in an [employer] program at [employer] in the [employer]. He is taking four 400 level courses, which apparently is too much for him. His parents have come up to see him. His dad seems somewhat relaxed about issues, his mom seems quite upset. His sleep is poor. He is not interested in much. His energy is low, he is unable to concentrate. His appetite has been poor and clearly has had a suicide attempt. B. Psychiatric Treatment Was Rendered: Lon was admitted to the adult behavioral unit and placed on 15-minute checks for safety. He did well on the unit, went to groups. He interacted with peers well. He tolerated med changes. Sertraline was started and we went from 50 to 100 mg. From home, he took vitamins and calcium. His stay here was relatively uneventful. He was pleasant. He went to almost all the groups. He got bored easily. There were people here who were difficult to manage and yet he managed well. He states that he is no longer having suicidal thoughts and that he anticipates never having suicidal thoughts again. When challenged on how he knows that, he says that he would never experience the exact kind of stress, emotional and work stress that he had and, therefore he knows he would never attempt suicide again. At this time though, his safety is assured by his parents' attentiveness and his constant observation and the addition of the partial hospitalization program. I did meet with his mom and dad. His mom is the one who took him home from discharge. She is extremely eager to see him do well and is incredibly attentive to him. No consults were entered. He is improved. He no longer feels overly stressed. He is no longer palpably anxious. In fact, his symptoms appeared to return to what looks more like depression rather than anxiety. He is very reserved and smiles in a somewhat flat fashion. He is extremely honest though about his emotions and does not tolerate inconsistencies in his reporting of emotions. He is very concrete. He is going to go back home with his mom for a few days and then return to stay with his dad because "that's where my bed is" and his followup will be intensive. MITZI SALGUERO, ESSIE [id number]/[facility] #: [id number] RORY
== END 2018-02-25 16:45 | disposition home or self-care (01) | DRG 882 ==
LOC: ED 19:44 → BSU 02-15 10:21 → ED 02-15 14:33 → BSU 02-17 02:31
PROVIDERS: ADMIT Psychiatry & Neurology Psychiatry; ATTEND Psychiatry & Neurology Psychiatry
PROC: GZHZZZZ Group Psychotherapy (ICD-10-PCS; principal; 2018-02-15)
DX: F43.23 Adjustment disorder with mixed anxiety and depressed mood (principal); F32.9 Major depressive disorder, single episode, unspecified; T14.91XA Suicide attempt, initial encounter; Y92.89 Other specified places as the place of occurrence of the external cause
CPT/HCPCS: 36415; 80053; 80307; 80320; 80329; 81003; 84443; 85025; 90686; 90853; 96102; 99222; 99231; 99232; 99233; 99238; 99284; A9270-GY; G0480

== ENCOUNTER 2019-04-17 19:32 | Inpatient (IN) | payer OTHER ==
--- NOTE | 2019-04-17 19:49 | ED ---
Psychiatric Complaint - HPI Summary HPI Summary: This pt is a 23 y/o male presenting to [facility] via EMS for suicidal ideation. Per triage note "Pt. from [place] reporting SI with intent to jump off [place]." Pt reports he is here "to stop something from happening." He notes recent stressor , mostly from increase stress of school work that has been building up. 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 Pt reports he has prior suicide attempt last year when he jumped off a bridge but was caught by the net under the bridge. He states his medication, Zoloft, was discontinued last month. Denies any PMHx. He denies tobacco, alcohol, or drug use. - History Of Current Complaint Time Seen by Provider: 04/17/19 19:42 Hx Obtained From: Patient Onset/Duration: Lasting Days, Still Present Timing: Days Severity Currently: Moderate Character: Depressed Aggravating Factor(s): Recent Stress Alleviating Factor(s): Nothing Associated Signs And Symptoms: Positive: Negative Related History: Positive For: Prior Psychiatric Issues Has Suicidal: Reports: Thoughts, With A Plan, Has Prior Attempt(s) Has Homicidal: Denies: Thoughts, With A Plan Recent Stressor(s): increase stress of school work - Allergies/Home Medications Allergies/Adverse Reactions: Allergies Allergy/AdvReac Type Severity Reaction Status Date / Time No Known Allergies Allergy Verified 02/14/18 20:04 Home Medications: Home Medications Multivitamins/Minerals TAB* [Theragran/minerals TAB*] 1 tab PO DAILY 04/17/19 [ History Confirmed 04/17/19] PMH/Surg Hx/FS Hx/Imm Hx Endocrine/Hematology History: Denies: Hx Diabetes Cardiovascular History: Denies: Hx Hypertension Respiratory History: Denies: Hx Asthma Sensory History: Reports: Other Sensory Impairments - auditory processing d/o Denies: Hx Contacts or Glasses, Hx Hearing Aid Opthamlomology History: Reports: Other Sensory Impairments - auditory processing d/o Denies: Hx Contacts or Glasses Neurological History: Reports: Other Neuro Impairments/Disorders - auditory processing d/o Psychiatric History: Reports: Hx Depression, Hx Community Mental Health Tx, Hx Suicide Attempt - Jumped from bridge Denies: Hx Inpatient Treatment, Hx of Violent Episodes Against Others, Hx Substance Abuse - Surgical History Surgical History: Yes Surgery Procedure, Year, and Place: wisdom teeth removal Infectious Disease History: No Infectious Disease History: Denies: Traveled Outside the [place] in Last 30 Days - Family History Known Family History: Negative: Cardiac Disease, Hypertension, Diabetes Family History: Mother's side of [place]. - Social History Alcohol Use: None Substance Use Type: Reports: None Smoking Status (MU): Never Smoked Tobacco Review of Systems Negative: Fever, Chills ENT: Negative Cardiovascular: Negative Respiratory: Negative Psychological: Other - POSITIVE: SI thoughts and plan, recent stress Positive: Depressed. Negative: Other - NEGATIVE: HI All Other Systems Reviewed And Are Negative: Yes Physical Exam - Summary Physical Exam Summary: GENERAL: Patient is a well-developed and nourished male. Patient is not in any acute respiratory distress. HEAD AND FACE: No signs of trauma. No ecchymosis, hematomas or skull depressions. No sinus tenderness. EYES: PERRLA, EOMI x 2, No injected conjunctiva, no nystagmus. EARS: Hearing grossly intact. Ear canals and tympanic membranes are within normal limits. MOUTH: Oropharynx within normal limits. NECK: Supple, trachea is midline, no adenopathy, no JVD, no carotid bruit, no c- spine tenderness, neck with full ROM. CHEST: Symmetric, no tenderness at palpation LUNGS: Clear to auscultation bilaterally. No wheezing or crackles. CVS: Regular rate and rhythm, S1 and S2 present, no murmurs or gallops appreciated. ABDOMEN: Soft, non-tender. No signs of distention. No rebound no guarding, and no masses palpated. Bowel sounds are normal. EXTREMITIES: FROM in all major joints, no edema, no cyanosis or clubbing. NEURO: Alert and oriented x 3. No acute neurological deficits. Speech is normal and follows commands. SKIN: Dry and warm PSYCH: Patient with positive SI thoughts and plan. Triage Information Reviewed: Yes Vital Signs On Initial Exam: Initial Vitals Temp Pulse Resp BP Pulse Ox 98.3 F 83 16 118/77 98 04/17/19 19:42 04/17/19 19:42 04/17/19 19:42 04/17/19 19:42 04/17/19 19:42 Vital Signs Reviewed: Yes Procedures - Sedation Patient Received Moderate/Deep Sedation with Procedure: No Diagnostics - Vital Signs Vital Signs Temp Pulse Resp BP Pulse Ox 04/17/19 19:42 98.3 F 83 16 118/77 98 - Laboratory Result Diagrams: 04/17/19 21:15 Lab Statement: Any lab studies that have been ordered have been reviewed, and results considered in the medical decision making process. Course/Dx - Course Assessment/Plan: Blood work w/o a significant abnormality. He is medically cleared. He is waiting for a MHE. Patient is hemodynamically stable, and A+O x 3. Patient will be signed out to Dr. Adams at shift change pending mental health evaluation and disposition. - Differential Dx/Clinical Impression Differential Diagnosis/HQI/PQRI: Positive: Anxiety, Depression, Suicidal Ideation Provider Diagnosis: Depression Discharge ED - Sign-Out/Discharge Documenting (check all that apply): Sign-Out Patient Signing out patient TO: Ji Adams - pending MHE and dispo - Discharge Plan Condition: Stable Referrals: No Primary Care Phys,NOPCP [Primary Care Provider] - - Attestation Statements Document Initiated by Scribe: Yes Documenting Scribe: Judit Broussard Provider For Whom Scribe is Documenting (Include Credential): Robb Poe MD Scribe Attestation: Judit De Santiago, scribed for Robb Poe MD on 04/17/19 at 2578. Status of Scribe Document: Ready
[2019-04-17 21:37] LABS: ABS Lymphocytes 1.5 10^3/ul (1.0-4.8); ABS Monocytes 0.5 10^3/ul (0-0.8); ABS Neutrophils 3.9 10^3/ul (1.5-7.7); Eosinophil % 0.6 %; Hematocrit 44 % (42-52); Hemoglobin 15.4 g/dL (14.0-18.0); Lymphocyte % 24.9 %; Mean Corpuscular HGB Conc 35 g/dL (31-36); Mean Corpuscular Hemoglobin 32 pg (27-31); Mean Corpuscular Volume 92 fL (80-94); Mean Platelet Volume 7.7 fL (7.4-10.4); Nucleated Red Blood Cells % 0.1; Platelet Count 232 10^3/uL (150-450); Red Blood Count 4.82 10^6 /uL (4.18-5.48); Red Cell Distribution Width 13 % (10-15)
[2019-04-17 21:56] LABS: ALT 8 U/L (7-52); AST 14 U/L (13-39); Albumin 4.6 g/dL (3.2-5.2); Albumin/Globulin Ratio 2.3 (1-3); Alkaline Phosphatase 61 U/L (34-104); Anion Gap 7 mmol/L (2-11); BUN/Creatinine Ratio 13.1 (8-20); Blood Urea Nitrogen 13 mg/dL (6-24); CO2 Carbon Dioxide 30 mmol/L (22-32); Calcium 9.8 mg/dL (8.6-10.3); Chloride 101 mmol/L (101-111); EGFR African American 113.4 (>60); EGFR Non-African American 93.7 (>60); Glucose 96 mg/dL (70-100); Sodium 138 mmol/L (135-145); Total Protein 6.6 g/dL (6.4-8.9)
--- NOTE | 2019-04-17 22:01 | ED ---
Progress - Progress Note Progress Note: Pt is a signout from Dr. Poe at 2200 on 04/17/19 pending MHE. Course/Dx - Course Course Of Treatment: Pt is a signout from Dr. Poe at 2200 on 04/17/19 pending MHE. Pt will be admitted to [facility] voluntarily as per Dr. Nj with dx of depressive disorder. - Diagnoses Provider Diagnoses: Depression Discharge ED - Sign-Out/Discharge Documenting (check all that apply): Patient Departure, Receiving Sign-Out Receiving patient FROM: Robb Poe - Discharge Plan Condition: Stable Disposition: PSYCHIATRIC FACILITY-[facility] - Billing Disposition and Condition Condition: STABLE Disposition: Psychiatric Facility [facility] - Attestation Statements Document Initiated by Scribe: Yes Documenting Scribe: Mariann Lim Provider For Whom Zeferino is Documenting (Include Credential): Ji Adams MD. Scribe Attestation: Mariann De Santiago, lollyed for Ji Adams MD. on 04/18/19 at 0541. Scribe Documentation Reviewed: Yes Provider Attestation: The documentation as recorded by the scribeMariann accurately reflects the service I personally performed and the decisions made by Ji quinones MD. Status of Scribe Document: Viewed
[2019-04-17 22:11] LABS: Acetaminophen < 15 mcg/mL; Alcohol < 10 mg/dL (<10); Salicylate < 2.50 mg/dL (<30)
[2019-04-17 22:26] LABS: TSH (Thyroid Stimulating Horm) 0.99 mcIU/mL (0.34-5.60)
[2019-04-18] MEDS ORDERED: Al Hydrox/Mg Hydrox/Simet LIQ* 30 ML UDC PO PRN (05:53)
[2019-04-18] MEDS ORDERED: Acetaminophen TAB* 325 MG PO PRN (05:53)
[2019-04-18] MEDS: Vitamin THERAPEUTIC TAB PO SCH (10:58)
--- NOTE | 2019-04-18 15:49 | HP ---
HISTORY AND PHYSICAL: DATE OF ADMISSION: 04/18/19 PROVIDER: Mitzi Salguero NP, Psychiatry. SUPERVISING PHYSICIAN: Zain Watts MD * (DICTATED BY MITZI SALGUERO NP) JUSTIFICATION FOR ADMISSION: The patient is in need of 24-hour supervision and care secondary to suicidal ideation. CHIEF COMPLAINT: "I was starting to feel the way that I felt last year when I jumped into the [place], so I decided to call 911." HISTORY OF PRESENT ILLNESS: The patient is a 23-year-old single white male with a history of suicidal ideation, depression and suicide attempt, who arrives brought in by ambulance from [place] after deciding that he was starting to feel like he wanted to jump in the gorge like he did last year. Lon is experiencing high stress because of school worries. He states he took 3 classes this year which he thought would be fine and that he would be able to manage it, but he got to and there were many projects demanded and he felt overloaded. He states he feels fearful and anxious and he is afraid that he will do the same thing he did last year. He was taking Zoloft 125 mg up until last month, but he was "discharged from [facility]" 1 month ago by a doctor in [facility]. He has given us permission to talk to his sister, Brigid, but not to his parents. At this time, his sleep is decreased, his interest are decreased. He feels guilt about potentially throwing away his opportunities at [employer]. His energy is lower. He cannot concentrate. He has poor appetite and he has suicidal ideation. PAST PSYCHIATRIC HISTORY: He was here in January and February of 2018 following his suicide attempt where he [place] and was caught by the nets that have been placed there to avert completed suicide. He had been taking Zoloft 125 mg, but he stated that at times he would get diarrhea and he did not really like Zoloft for that reason. He states when he takes the medication, he feels less fear and he feels calm. PAST MEDICAL HISTORY: Denied. TRAUMA HISTORY: Denied. FORENSIC ISSUES: Denied. FAMILY ISSUES: Denied, although he does state his father's side of the family drinks a lot of alcohol, but no one has been in treatment. SUBSTANCE ABUSE: Denied. SOCIAL HISTORY: Lon was born in [facility] and grew up there with his sister, Brigid. His parents, Suzanne Duong and Jeromy Hernandez are now . He denies abuse. His education was apparently typical. He is now at [employer]. He is in his senior year. He does not date anyone. He states he would be interested in women. He has never dated anyone. He is not employed. He has never been in the . There are no legal problems. He has never had a sexual partner. REVIEW OF SYSTEMS: The patient reports feeling fatigued, although he is relieved to have slept overnight. He denies shortness of breath, heat or cold intolerance, chest pain or abdominal pain. He denies neurological symptoms. He denies fevers or changes in weight. PHYSICAL EXAMINATION GENERAL: The patient is a well-developed and well-nourished male. He is not in any acute respiratory distress. VITAL SIGNS: On 04/18/19 at 0540, temperature was 97.6, pulse 93, respirations 16, O2 sat on room air 99%, blood pressure 115/74. HEENT: Head and Face: No signs of trauma. No ecchymosis, hematomas or skull depressions. No sinus tenderness. Eyes: PERRLA. EOMI x2. No injected conjunctivae. No nystagmus. Ears: Hearing grossly intact. Ear canals and tympanic membranes are within normal limits. Mouth: Oropharynx within normal limits. NECK: Supple. Trachea is midline. No adenopathy. No JVD. No carotid bruit. No C-spine tenderness. Neck with full range of motion. CHEST: Symmetric. No tenderness to palpation. LUNGS: Clear to auscultation bilaterally. No wheezing or crackles. CVS: Regular rate and rhythm. S1 and S2 present. No murmurs or gallops appreciated. ABDOMEN: Soft, nontender. No signs of distention. No rebound, no guarding and no masses palpated. Bowel sounds are normal. EXTREMITIES: Full range of motion in all major joints. No edema. No cyanosis or clubbing. NEURO: Alert and oriented x4. No acute neurological deficits. Speech is normal and he follows commands. SKIN: Warm and dry. DIAGNOSTIC STUDIES/LAB DATA: Most laboratory data are within normal limits, exceptions include MCH high at 32. There was no urine sample taken. MENTAL STATUS EXAMINATION: Lon is a 6 feet 2 inches, 165 pound, 23-year-old white male whose grooming is good. He is in behavioral control. He is calm and cooperative. His speech is of a normal rate, tone and volume. He is clearly dysthymic. He has a full range of affect. His thought processes are normal. His thought content is free of delusions, but he is distressed about his education. He is not homicidal. He is suicidal. He is not experiencing auditory or visual hallucinations. His insight is good. His judgment is fair. He is alert and oriented x4. DIAGNOSIS: Major depressive disorder, recurrent. IMPRESSION: Lon is a 23-year-old [employer] senior, who comes to the hospital following his feelings that he is approaching a level of depression that is equivalent to what it was last year when he attempted suicide. PLAN: The patient is admitted to the adult behavioral health unit and placed on q.15 minute checks for his own safety. He is encouraged to participate in supportive milieu, individual and group therapies. Estimated length of stay is 5 to 7 days. We will titrate medications to efficacy and monitor for mood and thought content. Discharge planning will include family involvement and outpatient providers. MITZI SALGUERO NP [id number]/[facility] #: [id number] RORY
[2019-04-18] MEDS: Escitalopram * 10 MG TAB PO SCH (20:39)
[2019-04-19] MEDS: Vitamin THERAPEUTIC TAB PO SCH (11:08)
--- NOTE | 2019-04-19 15:02 | PN ---
Subjective - Subjective Date of Service: 04/19/19 Service Type: 60621 Hosp care 25 min moderate complexity Subjective: Lon remains depressed and appears tired and anxious. He worries about [place] and his future and cannot at this time be soothed with the idea that he needs time and medication to feel better. I spoke with his sister Brigid ([phone]) who said that the family had no idea he was struggling until about two weeks ago when he reached out to her for some comfort and friendly talk. She said he usually doesn't respond or responds in one word texts, so this was a large departure from typical. She is glad he is here and has been calling him here to give support. Objective - General Observations Appearance: Neat Appears Stated Age: Yes Stature: Thin Posture: WNL Eye Contact: Intense Behavior/Activity: WNL - Interaction Observations Attitude Towards Examiner: Cooperative, Anxious Stated Mood: Dysphoric Affect: Flat Speech Pattern/Tone: Clear, Normal Volume Thought Process: Coherent Perception: WNL Thought Content: Preoccupation/Ruminations Thought Process: Lethality: Passive Wish Hallucination Type: None Delusion Type: None - Cognitive Function Orientation: A&O x 4 Level of Consciousness: Awake, Alert, Appropriate Cognition: WNL Estimated Intelligence: Normal Insight: WNL Judgment Within Normal Limits: No Ability to Make Reasonable Decisions: Moderately Impaired - Medication Compliance Cooperative with Inpatient Medication Regimen: Yes - Group Participation Participates in Group Activities: Yes Plan - Plan Treatment Plan: Name: DAWOOD ZAMORA Birthdate: 1995 [id number] Medications: Current Medications Acetaminophen (Tylenol Tab*) 650 mg PO Q4H PRN PRN Reason: PAIN or TEMP > 101 F Al Hydrox/Mg Hydrox/Simethicone (Maalox Plus*) 30 ml PO Q4H PRN PRN Reason: INDIGESTION Escitalopram Oxalate (Lexapro *) 10 mg PO BEDTIME [facility] Last Admin: 04/18/19 20:39 Dose: 10 mg Multivitamins (Theragran Tab*) 1 tab PO DAILY [facility] Last Admin: 04/19/19 11:08 Dose: Not Given
[2019-04-19] MEDS: Escitalopram * 10 MG TAB PO SCH (20:47)
[2019-04-20] MEDS: Vitamin THERAPEUTIC TAB PO SCH (10:26)
[2019-04-20] MEDS: Escitalopram * 10 MG TAB PO SCH (20:09)
--- NOTE | 2019-04-20 21:05 | PN ---
Subjective - Subjective Date of Service: 04/20/19 Service Type: 24351 Hosp care 25 min moderate complexity Subjective: Lon continues to severely depressed but denies any active suicidal thoughts. Says this time before he acted on his suicidal plans he asked for help and feels good about that. Taking his med without any problems or side effects. Objective - General Observations Appearance: Unkempt Appears Stated Age: Yes Stature: Thin, Tall Posture: WNL Eye Contact: Average Behavior/Activity: WNL - Interaction Observations Attitude Towards Examiner: Cooperative Stated Mood: Dysphoric Affect: Restricted Speech Pattern/Tone: Clear, Appropriate, Normal Volume Thought Process: Coherent, Goal Directed Perception: WNL Thought Content: WNL Thought Process: Lethality: Passive Wish Hallucination Type: Denies Delusion Type: Denies - Cognitive Function Orientation: A&O x 4 Level of Consciousness: Awake, Alert, Appropriate Cognition: WNL Insight: WNL Judgment Within Normal Limits: No - Medication Compliance Cooperative with Inpatient Medication Regimen: Yes - Group Participation Participates in Group Activities: Yes Assessment - Assessment Merits Inpatient Hospitalization: For Immediate Safety, For Stabilization, Pending Safe DC Plan Clinical Impression: Still severely depressed and needs ongoing hospitalization. Plan - Plan Treatment Plan: Name: DAWOOD ZAMORA Birthdate: 1995 [id number] Continued Medication Management: Continue Outpt Medication Medications: Current Medications Acetaminophen (Tylenol Tab*) 650 mg PO Q4H PRN PRN Reason: PAIN or TEMP > 101 F Al Hydrox/Mg Hydrox/Simethicone (Maalox Plus*) 30 ml PO Q4H PRN PRN Reason: INDIGESTION Escitalopram Oxalate (Lexapro *) 10 mg PO BEDTIME [facility] Last Admin: 04/20/19 20:09 Dose: 10 mg Multivitamins (Theragran Tab*) 1 tab PO DAILY [facility] Last Admin: 04/20/19 10:26 Dose: Not Given - Discharge Plan Discharge Plan: Outpatient Follow Up Outpatient Program: Counseling/Psych Services at [place]
[2019-04-21] MEDS: Vitamin THERAPEUTIC TAB PO SCH (09:00)
--- NOTE | 2019-04-21 12:57 | PN ---
Subjective - Subjective Date of Service: 04/21/19 Service Type: [id number] Hosp care 15 min low complexity Subjective: Lon remains anxious about what [facility] will do with him, despite being reassured that he will not be expelled or dismissed. He will talk to Sara Wellington LMSW, regarding his future at [facility]. His sister and mother are supportive and plan to come and see him after the . Objective - General Observations Appearance: Neat Appears Stated Age: Yes Stature: Thin Posture: WNL, Slumped Eye Contact: Average Behavior/Activity: WNL - Interaction Observations Attitude Towards Examiner: Cooperative, Anxious Stated Mood: Dysphoric, Anxious Affect: Restricted Speech Pattern/Tone: Clear, Appropriate, Normal Volume Thought Process: Coherent, Goal Directed Perception: WNL Thought Content: WNL, Preoccupation/Ruminations Hallucination Type: None Delusion Type: None - Cognitive Function Orientation: A&O x 4 Level of Consciousness: Awake, Alert, Appropriate Cognition: WNL, Impaired Writing Insight: WNL Judgment Within Normal Limits: No Ability to Make Reasonable Decisions: Mildly Impaired - Medication Compliance Cooperative with Inpatient Medication Regimen: Yes - Group Participation Participates in Group Activities: Partial Assessment - Assessment Merits Inpatient Hospitalization: For Immediate Safety Clinical Impression: Still severely depressed and needs ongoing hospitalization. Plan - Plan Treatment Plan: Name: DAWOOD ZAMORA Birthdate: 1995 [id number] Lon will start Lexapro, as he didn't like Zoloft due to occasional GI side effects. He will stay here until his depression and anxiety resolve to manageable levels. Continued Medication Management: Different Medication Medications: Current Medications Acetaminophen (Tylenol Tab*) 650 mg PO Q4H PRN PRN Reason: PAIN or TEMP > 101 F Al Hydrox/Mg Hydrox/Simethicone (Maalox Plus*) 30 ml PO Q4H PRN PRN Reason: INDIGESTION Escitalopram Oxalate (Lexapro *) 10 mg PO BEDTIME [facility] Last Admin: 04/20/19 20:09 Dose: 10 mg Multivitamins (Theragran Tab*) 1 tab PO DAILY [facility] Last Admin: 04/21/19 09:00 Dose: Not Given - Discharge Plan Discharge Plan: Outpatient Follow Up Outpatient Program: Counseling/Psych Services at [place]
[2019-04-21] MEDS: Escitalopram * 10 MG TAB PO SCH (21:35)
[2019-04-22] MEDS: Vitamin THERAPEUTIC TAB PO SCH (11:17)
--- NOTE | 2019-04-22 14:43 | PN ---
Subjective - Subjective Date of Service: 04/22/19 Service Type: 75142 Hosp care 25 min moderate complexity Subjective: I didn't see much difference in Lon's depression today compared to last time I saw him. His personal hygiene and grooming has worsened. Says he feels a little better and awaiting a visit from his mom and step dad. Taking his meds but doesn 't appear to attend any unit activities. Objective - General Observations Appearance: Disheveled, Unkempt Appears Stated Age: Yes Stature: WNL Posture: WNL Eye Contact: Intermittent Behavior/Activity: Slowed - Interaction Observations Attitude Towards Examiner: Cooperative Stated Mood: Dysphoric Affect: Blunted Speech Pattern/Tone: Clear, Quiet Volume Thought Process: Coherent, Goal Directed Thought Content: WNL Hallucination Type: Denies Delusion Type: Denies - Cognitive Function Orientation: A&O x 4 Level of Consciousness: Awake, Alert, Appropriate Cognition: WNL Estimated Intelligence: Normal Insight: WNL Judgment Within Normal Limits: Yes Ability to Make Reasonable Decisions: Mildly Impaired - Medication Compliance Cooperative with Inpatient Medication Regimen: Yes - Group Participation Participates in Group Activities: No Assessment - Assessment Merits Inpatient Hospitalization: For Immediate Safety, For Stabilization, Pending Safe DC Plan Clinical Impression: Still severely depressed and needs ongoing hospitalization for his safety and stabilization. Plan - Plan Treatment Plan: Name: DAWOOD ZAMORA Birthdate: 1995 [id number] Continued Medication Management: Continue Outpt Medication Medications: Current Medications Acetaminophen (Tylenol Tab*) 650 mg PO Q4H PRN PRN Reason: PAIN or TEMP > 101 F Al Hydrox/Mg Hydrox/Simethicone (Maalox Plus*) 30 ml PO Q4H PRN PRN Reason: INDIGESTION Escitalopram Oxalate (Lexapro *) 10 mg PO BEDTIME [facility] Last Admin: 04/21/19 21:35 Dose: 10 mg Multivitamins (Theragran Tab*) 1 tab PO DAILY [facility] Last Admin: 04/22/19 11:17 Dose: Not Given - Discharge Plan Discharge Plan: Outpatient Follow Up Outpatient Program: Counseling[facility]Psych Services at [place] - Might be a very good candidate for ECT.
[2019-04-22] MEDS: Escitalopram * 10 MG TAB PO SCH (20:16)
[2019-04-23] MEDS: Vitamin THERAPEUTIC TAB PO SCH (10:55)
[2019-04-23] MEDS: Escitalopram * 10 MG TAB PO SCH (21:19)
[2019-04-24] MEDS: Vitamin THERAPEUTIC TAB PO SCH (07:51)
[2019-04-24] MEDS ORDERED: hydrOXYzine HCL TAB* 50 MG PO PRN (10:36)
--- NOTE | 2019-04-24 17:14 | PN ---
Subjective - Subjective Date of Service: 04/24/19 Service Type: [id number] Hosp care 25 min moderate complexity Subjective: Lon is doing well. He is preparing to be discharged tomorrow. He has made new alliances with his family, specifically with his mom and sister. He is anxious about [place], but less so than he was before he spoke with Sara Wellington [employer] who now works at [facility]. He has an opportunity to finish his coursework over the winter break and may be able to graduate before having to come back to [place] in the spring. Objective - General Observations Appearance: Neat Appears Stated Age: Yes Stature: Thin Posture: WNL, Slumped Eye Contact: Average Behavior/Activity: WNL - Interaction Observations Attitude Towards Examiner: Cooperative, Anxious Stated Mood: Dysphoric, Anxious Affect: Blunted Speech Pattern/Tone: Clear, Normal Volume Thought Process: Coherent, Goal Directed Perception: WNL Thought Content: Preoccupation/Ruminations, Depressive Hallucination Type: None Delusion Type: None - Cognitive Function Orientation: A&O x 4 Level of Consciousness: Awake, Alert, Appropriate Cognition: WNL Estimated Intelligence: Normal Insight: WNL Judgment Within Normal Limits: Yes - Medication Compliance Cooperative with Inpatient Medication Regimen: Yes - Group Participation Participates in Group Activities: Yes Assessment - Assessment Merits Inpatient Hospitalization: For Immediate Safety Clinical Impression: Lon is a 23-year-old white male who is a senior at [employer] and is having thoughts of suicide for the second time in 12 months, the first of which resulted into [place] where he was [place] by rescue nets. This time he called 911 to help him before an attempt. Plan - Plan Treatment Plan: Name: DAWOOD ZAMORA Birthdate: 1995 [id number] 04/24/19 Discharge to [place] tomorrow and then the next day home with his family to [facility] where he will finish his school work. Medications: Current Medications Acetaminophen (Tylenol Tab*) 650 mg PO Q4H PRN PRN Reason: PAIN or TEMP > 101 F Al Hydrox/Mg Hydrox/Simethicone (Maalox Plus*) 30 ml PO Q4H PRN PRN Reason: INDIGESTION Escitalopram Oxalate (Lexapro *) 10 mg PO BEDTIME [facility] Last Admin: 04/23/19 21:19 Dose: 10 mg Hydroxyzine HCl (Atarax Tab*) 50 mg PO Q6H PRN PRN Reason: anxiety Multivitamins (Theragran Tab*) 1 tab PO DAILY [facility] Last Admin: 04/24/19 07:51 Dose: Not Given - Discharge Plan Discharge Plan: Outpatient Follow Up Outpatient Program: Counseling/Psych Services at [place]
[2019-04-24] MEDS: Escitalopram * 10 MG TAB PO SCH (23:15)
[2019-04-25] MEDS: Vitamin THERAPEUTIC TAB PO SCH (07:40)
[2019-04-25 08:51] VITALS: BP 107/58
--- NOTE | 2019-04-25 22:05 | DS ---
DISCHARGE SUMMARY: DATE OF ADMISSION: 04/18/19 DATE OF DISCHARGE: 04/25/19 PROVIDER: Mitzi Salgeuro NP in Psychiatry. SUPERVISING PHYSICIAN: Zain Watts MD * (DICTATED BY MITZI SALGUERO NP) DIAGNOSIS: Major depressive disorder, recurrent, severe. CONDITION AT THE TIME OF DISCHARGE: Improved, psychiatrically cleared, stable, participated in groups, social with peers. His family is agreeable to his discharge as is Lon. He has done done well here psychiatrically. He tolerated the addition of Lexapro 10 mg with some electrical feelings in his fingers and toes, but he tolerated that as well. He will be attending [facility] for a followup appointment and then his mother had made him an appointment in [facility] where he will see a provider there. MENTAL STATUS EXAM: At the time of discharge, Lon is calm, cooperative, and makes good eye contact. He is alert and oriented x4. His grooming is adequate. His speech pace is normal. His thought processes are logical. He is not psychotic or delusional. He denies AH, VH, SI, and HI. Insight and judgment are good. He is willing to follow up and he is urged to see a therapist. DISCHARGE INSTRUCTIONS TO THE PATIENT: A. Medications: Lexapro 10 mg daily. Calcium carbonate/vitamin D 1000 mg of calcium and D3 caplets daily. B. Diet is regular. C. Activities as tolerated. He is a nonsmoker. There are no studies pending at the time of discharge. D. Followup care. He has an appointment at [facility] with Carli on level 3 today 04/25/19 at 3 p.m. He should show up at 2:45 to fill out a questionnaire beforehand. E. Disposition. He is being discharged temporarily to his apartment off [address] and then he has been picked up by his mother or stepfather and taken back to [place] where he will stay over the winter break. F. Substance abuse followup is not indicated. HOSPITAL COURSE: Part A. Chief Complaint: "I was starting to feel the way that I felt last year when I jumped into the gorge, so I decided to call 911." The patient is a 23-year-old single white male with a history of suicidal ideation, depression and suicide attempt, who arrives brought in by ambulance from [place] after deciding that he was starting to feel like he wanted to jump in the gorge like he did last year. Lon is experiencing high stress because of school worries. He states he got 3 classes this year which he thought would be fine and that he will be able to manage, but he got to the final season and there were too many projects demanded and he felt overloaded. He states he feels fearful and anxious, and he is afraid that he will do the same thing he did last year. He was taking Zoloft 125 mg up until last month, but he was "discharged from [facility]" one month ago by a doctor in [facility]. He has given us permission to talk to his sister Brigid, but not to his parents. At this time, his sleep is decreased. His interests are decreased. He feels guilt about potentially throwing away his opportunities at [employer]. His energy is lower. He cannot concentrate. He has poor appetite and suicidal ideation. Part B: Psychiatric treatment was rendered. Lon was admitted to the adult behavioral health unit and placed on 15-minute checks for safety. He did advance to 30-minute checks and staff pass privileges. He was safe on all checks. Lon did well on the unit and went to groups. He interacted with peers well. This was especially noted on when he appropriately inserted himself with peers and visitors to have a holiday that was suitably pleasant for him. He tolerated the change from Zoloft to Lexapro as he did not like Zoloft. He had some GI side effects on occasion with Zoloft. We thought that moving to Lexapro would be more likely to result in a better outcome. Starting at 10 mg may have been less tolerable to him as he did get what he termed zappy, electrical sensations in his fingers and toes. These did seem to resolve themselves and he tolerated them well. I spoke with his sister, Brigid. She was very much in support of Lon getting treatment here at the hospital. She was worried about him and said that he does not give a lot of symptoms over the phone or by text. In fact, he usually communicates in 1 word text or not at all. So, she was surprised when he called her last week to discuss life in general and talk about video games. This may have been his attempt to reach out as he has no friends at [employer] and he started feeling isolated. He thought that this is his fault that he should have cultivated friendship, but that guilt was not serving him well at all. He did show that he has capacity to make social connections while he was on the unit. In addition, he was going to make calls to some friends he has not seen in a long time and try to spent time with them over the winter holidays. There were no consults entered for Lon. He is doing well. He is much improved. He is sleeping. His interests have increased. His energy has increased and he is not suicidal any longer. He is in fact future oriented and eager to finish his [employer] work over the winter break and spend more time in [facility] with family and friends. MITZI SALGUERO, ESSIE [id number]/CPS #: [id number] RORY
== END 2019-04-25 14:45 | disposition home or self-care (01) | DRG 885 ==
LOC: ED 19:32 → BSU 04-18 04:44
PROVIDERS: ADMIT Psychiatry & Neurology Psychiatry; ATTEND Psychiatry & Neurology Psychiatry
DX: F33.2 Major depressive disorder, recurrent severe without psychotic features (principal); R45.851 Suicidal ideations; H93.25 Central auditory processing disorder; Z79.899 Other long term (current) drug therapy; Z91.5 Personal history of self-harm
CPT/HCPCS: 36415; 80053; 80320; 80329; 84443; 85025; 99222; 99231; 99232; 99238; 99284; A9270-GY; G0480